=== PATIENT | female | born 1985 | race Caucasian/White ===

== ENCOUNTER 2018-03-15 13:40 | Inpatient (IN) | payer SELFPAY ==
[~2018-03-15] VITALS: Ht 167.6 cm; Wt 73.0 kg
[2018-03-15] MEDS ORDERED: HYDROcodone/APAP 5/325MG 1 TAB TABLET PO PRN (15:45)
--- NOTE | 2018-03-15 15:50 | NUR ---
Pt here from [facility] via POV,no IV in place. Pt. screaming and squirming in bed, refusing IV in R are initially. Unable to find vein in L arm. Attempt x 1 made to R ac. Pt tensing up and and moving, unable to advance IV. Pt now refusing to have IV started. Pt. states "take it out, get somebody else". Dr. Berry at bedside, notfied of pt's refusal for IV at this time. Spoke with Faviola, butter production supervisor to attempt IV.
[2018-03-15] MEDS: ONDANSETRON PF 4 MG/2 ML VIAL. IV PRN (16:17)
[2018-03-15] MEDS ORDERED: PROCHLORPERAZINE 10 MG/2 ML VIAL. IV PRN (16:30)
[2018-03-15] MEDS ORDERED: ONDANSETRON PF 4 MG/2 ML VIAL. IV PRN (16:30)
[2018-03-15] MEDS ORDERED: MAGNESIUM HYDROXIDE 2,400 MG/30 ML ORAL.SUSP. PO PRN (16:30)
[2018-03-15] MEDS: IV 1/2 NORMAL SALINE 1,000 ML IV SCH (16:50)
[2018-03-15] MEDS: MORPHINE SULFATE 4 MG/ML VIAL. IV PRN ×3 (16:51→23:12)
--- NOTE | 2018-03-15 16:53 | PDOC1 ---
History and Physical Date of Admission Date of Admission DATE: 03/15/18 TIME: 16:38 Identification/Chief Complaint Chief Complaint back pain Problems: (1) UTI (urinary tract infection) Source Source: Patient History of Present Illness History of Present Illness 33 year old female with prior UTI who presents with intractable left flank pain since early this AM. patient writhing in pain and unable to answer questions. patient's significant other in room who provided most of the brief history. patient came from outside ER and did not ride by ambulance. she came in private vehicle so no IV access available upon arrival. per ER doctor patient given 2 grams of Rocephin, not septic with stable VSS. US noted to have 4 mm stone. further history difficult to obtain at patient in pain and not answer my questions. patient actively vomiting in room. Past Medical History Past Medical History hx of UTIs in past. no reported hx of nephrolithiasis. Past Surgical History Past Surgical History denies Family History Family History difficult to obtain as patient in pain Social History Smoke: <1 pack per day ALCOHOL: none Drugs: None Current Medications Current Medications Current Medications Acetaminophen/ Hydrocodone Bitart (Lortab 5/325) 1 tab PRN Q4HRS PRN PO PAIN; Start 03/15/18 at 15:45 Ondansetron HCl (Zofran) 4 mg PRN Q6HRS PRN IV NAUSEA/VOMITING Last administered on 03/15/18at 16:17; Start 03/15/18 at 15:45 Sodium Chloride 1,000 ml @ 100 mls/hr Q10H IV ; Start 03/15/18 at 17:00 Ondansetron HCl (Zofran) 4 mg PRN Q6HRS PRN IV NAUSEA/VOMITING; Start 03/15/18 at 16:30; Status UNV Prochlorperazine Edisylate (Compazine) 10 mg PRN Q6HRS PRN IV NAUSEA/VOMITING 2ND CHOICE; Start 03/15/18 at 16:30 Morphine Sulfate (Morphine Sulfate) 1 mg PRN Q1HR PRN IV PAIN; Start 03/15/18 at 16:30 Docusate Sodium (Colace) 100 mg BID PO ; Start 03/15/18 at 21:00 Magnesium Hydroxide (Milk Of Magnesia) 2,400 mg PRN Q12HR PRN PO CONSTIPATION; Start 03/15/18 at 16:30 Heparin Sodium (Porcine) (Heparin Sodium) 5,000 unit Q8HRS SQ ; Start 03/15/18 at 22:00 Ceftriaxone Sodium (Rocephin) 1 gm Q24H IVP ; Start 03/15/18 at 17:00 Allergies Allergies: Coded Allergies: No Known Drug Allergies (Unverified , 03/15/18) ROS Review of System CONSTITUTIONAL: No fever or chills EYES: No recent changes SKIN: No rash or itching CARDIOVASCULAR: No chest pain, syncope, palpitations, or edema RESPIRATORY: No SOB or cough GASTROINTESTINAL: No nausea, vomiting or abdominal pain NEUROLOGICAL: No headaches or weakness ENDOCRINE: No cold or heat intolerance GENITOURINARY: No urgency or frequency of urination MUSCULOSKELETAL: No back pain or joint pain LYMPHATICS: No enlarged lymph nodes PSYCHIATRIC: No anxiety or depression Physical Exam Physical Exam GENERAL: No apparent distress. Alert and oriented. HEENT: Head normocephalic, atraumatic. NECK: Supple LUNGS: Clear to auscultation. HEART: RRR, S1, S2 present, pulses intact ABDOMEN: Soft, positive bowel sounds. EXTREMITIES: No cyanosis or edema. NEUROLOGIC: Normal speech, normal tone PSYCHIATRIC: Normal affect, normal mood. SKIN: No ulceration. VTE Prophylaxis Ordered VTE Prophylaxis Devices: Yes VTE Pharmacological Prophylaxi: Yes Assessment/Plan Assessment/Plan ASSESSMENT: Acute Cystitis without Hematuria secondary to Nephrolithiasis Intractable Nausea and Vomiting Tobacco Abuse PLAN: admit to medical floor bed obtain stat IV access IV compazine for nausea and IV morphine for pain NPO status for now check CBC and BMP now check urine culture start IV Rocephin Urology consulted, defer any further imaging for now. await recommendations dvt ppx: heparin full code LOS greater than 2 days given UTI/kidney stones requiring IV abx and fluids Problem Qualifiers (1) UTI (urinary tract infection): Urinary tract infection type: acute cystitis Hematuria presence: without hematuria Qualified Codes: N30.00 - Acute cystitis without hematuria CHHAYA GUIDRY MD Mar 15, 2018 16:53
[2018-03-15] MEDS: cefTRIAXone IV Push 1 GM VIAL. IVP SCH (17:00)
[2018-03-15 17:21] VITALS: BP 119/69
[2018-03-15 17:27] LABS: BASO % 0 % (0-3); EOS # 0.2 x10^3/uL (0.0-0.7); EOS % 1 % (0-3); HEMATOCRIT 36.7 % (36.0-47.0); HEMOGLOBIN 11.8 g/dL (12.0-15.5); LYMPH % 6 % (24-48); MEAN CORPUSCULAR HEMOGLOBIN 29 pg (25-35); MEAN CORPUSCULAR HGB CONC 32 g/dL (31-37); MEAN CORPUSCULAR VOLUME 90 fL (79-100); MONO # 2.1 x10^3/uL (0.0-1.1); MONO % 12 % (0-9); NEUT # 13.9 x10^3uL (1.8-7.7); NEUT % 81 % (31-73); PLATELET COUNT 275 x10^3/uL (140-400); RED CELL DISTRIBUTION WIDTH 13.5 % (11.5-14.5); WHITE BLOOD COUNT 17.3 x10^3/uL (4.0-11.0)
[2018-03-15 17:41] LABS: CALCIUM 8.4 mg/dL (8.5-10.1); CREATININE 0.8 mg/dL (0.6-1.0); GFR 82.6; POTASSIUM 3.4 mmol/L (3.5-5.1)
[2018-03-15 17:44] LABS: ALBUMIN 3.2 g/dL (3.4-5.0); DIRECT BILIRUBIN 0.1 mg/dL (0.0-0.2); TOTAL BILIRUBIN 0.2 mg/dL (0.2-1.0); TOTAL PROTEIN 5.9 g/dL (6.4-8.2)
[2018-03-15 18:07] LABS: % EOS 1 % (0-5); % LYMPHS 5 % (24-48); % MONOS 7 % (0-10); % SEGS 87 % (35-66)
[2018-03-15 18:08] LABS: PLT ESTIMATE ADEQUATE (ADEQUATE)
[2018-03-15 19:45] VITALS: BP 98/52
[2018-03-15] MEDS: DOCUSATE SODIUM 100 MG CAPSULE. PO SCH (20:46)
[2018-03-15] MEDS: HEPARIN for SUB-Q USE 5,000 UNIT/ML VIAL. SQ SCH (22:00)
--- NOTE | 2018-03-15 22:48 | NUR ---
Pt. moaned and cried that heparin was being given on her arm. Significant other was at bedside trying to comfort pt. while patient started to thrash around. This nurse dropped heparin needle and poked pt. accidentally. Pt. started swearing. This nurse attempted to tell pt. she needs to stop moving around or there was a chance of this nurse getting pricked by the needle. Pt. then stated "step back and get the fucking needle away from me." Pt. was educated on reason for heparin and its preventative measures.
[2018-03-16] MEDS: ONDANSETRON PF 4 MG/2 ML VIAL. IV PRN (02:36)
[2018-03-16] MEDS: IV 1/2 NORMAL SALINE 1,000 ML IV SCH ×2 (02:37→11:47)
[2018-03-16] MEDS: MORPHINE SULFATE 4 MG/ML VIAL. IV PRN ×2 (02:37→06:45)
[2018-03-16 03:14] VITALS: BP 99/60
[2018-03-16 06:02] LABS: ALBUMIN 2.7 g/dL (3.4-5.0); ALBUMIN/GLOBULIN RATIO 0.9 (1.0-1.7); CALCIUM 8.5 mg/dL (8.5-10.1); CREATININE 0.8 mg/dL (0.6-1.0); GFR 82.6; POTASSIUM 3.5 mmol/L (3.5-5.1); TOTAL BILIRUBIN 0.4 mg/dL (0.2-1.0); TOTAL PROTEIN 5.7 g/dL (6.4-8.2)
[2018-03-16] MEDS: HEPARIN for SUB-Q USE 5,000 UNIT/ML VIAL. SQ SCH ×2 (06:45→12:51)
[2018-03-16 07:00] VITALS: BP 96/61
[2018-03-16] MEDS: DOCUSATE SODIUM 100 MG CAPSULE. PO SCH ×2 (08:13→09:24)
--- NOTE | 2018-03-16 08:51 | PDOC2 ---
WYATT CALVO ADON 03/16/18 0851: UROLOGY CONSULT Date of Consult Date of Consult DATE: 03/16/18 TIME: 08:43 Reason for Consult Reason for Consult: Kidney stone Identification/Chief Complaint Chief Complaint Kidney stone Source Source: Caregiver, Chart review, Patient History of Present Illness Reason for Visit: Patient is a 33 year old female who presented to the ER with intractable right sided flank pain yesterday. A CT scan was done and it was discovered that she had a kidney stone on the left side. Patient reports that this is her first one. She is otherwise a healthy person with no chronic health conditions. She denies dysuria or hematuria; however her urine does look "dark orange." She does not remember seeing any dirt or sand coming out in her urine. Today her pain is much better controlled, about 5/10 with medication and she is requesting something to eat. Past Medical History Cardiovascular: No pertinent hx Pulmonary: No pertinent hx GI: No pertinent hx Heme/Onc: No pertinent hx Hepatobiliary: No pertinent hx Psych: No pertinent hx Musculoskeletal: Other (flank pain left side) Grav: 2 Para: 2 Social History <1 pack per day ALCOHOL: none Drugs: None Current Problem List Problems: (1) Kidney stone (2) UTI (urinary tract infection) Current Medications Current Medications Current Medications Acetaminophen/ Hydrocodone Bitart (Lortab 5/325) 1 tab PRN Q4HRS PRN PO PAIN; Start 03/15/18 at 15:45 Ceftriaxone Sodium (Rocephin) 1 gm Q24H IVP Last administered on 03/15/18at 17:00 ; Start 03/15/18 at 17:00 Docusate Sodium (Colace) 100 mg BID PO Last administered on 03/15/18at 20:46; Start 03/15/18 at 21:00 Heparin Sodium (Porcine) (Heparin Sodium) 5,000 unit Q8HRS SQ ; Start 03/15/18 at 22:00 Magnesium Hydroxide (Milk Of Magnesia) 2,400 mg PRN Q12HR PRN PO CONSTIPATION; Start 03/15/18 at 16:30 Morphine Sulfate (Morphine Sulfate) 1 mg PRN Q1HR PRN IV PAIN Last administered on 03/16/18at 06:45; Start 03/15/18 at 16:30 Ondansetron HCl (Zofran) 4 mg PRN Q6HRS PRN IV NAUSEA/VOMITING Last administered on 03/16/18at 02:36; Start 03/15/18 at 15:45 Ondansetron HCl (Zofran) 4 mg PRN Q6HRS PRN IV NAUSEA/VOMITING; Start 03/15/18 at 16:30; Status UNV Prochlorperazine Edisylate (Compazine) 10 mg PRN Q6HRS PRN IV NAUSEA/VOMITING 2ND CHOICE; Start 03/15/18 at 16:30 Sodium Chloride 1,000 ml @ 100 mls/hr Q10H IV Last administered on 03/16/18at 02 :37; Start 03/15/18 at 17:00 Tamsulosin HCl (Flomax) 0.4 mg DAILY PO ; Start 03/16/18 at 09:00; Status UNV Allergies Allergies: Coded Allergies: No Known Drug Allergies (Unverified , 03/15/18) ROS Review Of Systems: CONSTITUTIONAL: No fever or chills EYES: No recent changes SKIN: No rash or itching CARDIOVASCULAR: No chest pain, syncope, palpitations, or edema RESPIRATORY: No SOB or cough GASTROINTESTINAL: + left flank pain/left lower/upper quadrant pain NEUROLOGICAL: No headaches or weakness ENDOCRINE: No cold or heat intolerance GENITOURINARY: No urgency or frequency of urination; no hematuria MUSCULOSKELETAL: No back pain or joint pain LYMPHATICS: No enlarged lymph nodes PSYCHIATRIC: No anxiety or depression Physical Exam Physical Exam: General: Pleasant, no acute distress, well groomed Eyes: conjunctiva anicteric, eyes full range of motion ENT: moist oral mucosa, normal dentition Neck: Trachea midline, no masses Respiratory: unlabored breathing, not using accessory muscles Abdomen: + tender left flank, left upper and lower quadrants of abd; non tender all other areas. Skin: no rashes or skin lesions on visualized skin Psych: normal mood, affect. Alert and oriented x 3. Vitals VITALS Vital Signs Date Time Temp Pulse Resp B/P (MAP) Pulse Ox O2 Delivery O2 Flow Rate FiO2 03/16/18 08:17 Room Air 03/16/18 07:23 18 03/16/18 07:00 98.1 84 96/61 (73) 97 98.1 Labs Labs Laboratory Tests Test 03/15/18 17:20 03/16/18 03:45 White Blood Count 17.3 x10^3/uL (4.0-11.0) Red Blood Count 4.10 x10^6/uL (3.50-5.40) Hemoglobin 11.8 g/dL (12.0-15.5) Hematocrit 36.7 % (36.0-47.0) Mean Corpuscular Volume 90 fL (79-100) Mean Corpuscular Hemoglobin 29 pg (25-35) Mean Corpuscular Hemoglobin Concent 32 g/dL (31-37) Red Cell Distribution Width 13.5 % (11.5-14.5) Platelet Count 275 x10^3/uL (140-400) Neutrophils (%) (Auto) 81 % (31-73) Lymphocytes (%) (Auto) 6 % (24-48) Monocytes (%) (Auto) 12 % (0-9) Eosinophils (%) (Auto) 1 % (0-3) Basophils (%) (Auto) 0 % (0-3) Neutrophils # (Auto) 13.9 x10^3uL (1.8-7.7) Lymphocytes # (Auto) 1.0 x10^3/uL (1.0-4.8) Monocytes # (Auto) 2.1 x10^3/uL (0.0-1.1) Eosinophils # (Auto) 0.2 x10^3/uL (0.0-0.7) Basophils # (Auto) 0.0 x10^3/uL (0.0-0.2) Segmented Neutrophils % 87 % (35-66) Lymphocytes % 5 % (24-48) Monocytes % 7 % (0-10) Eosinophils % 1 % (0-5) Platelet Estimate Adequate (ADEQUATE) Sodium Level 140 mmol/L (136-145) 139 mmol/L (136-145) Potassium Level 3.4 mmol/L (3.5-5.1) 3.5 mmol/L (3.5-5.1) Chloride Level 104 mmol/L (98-107) 106 mmol/L (98-107) Carbon Dioxide Level 24 mmol/L (21-32) 25 mmol/L (21-32) Anion Gap 12 (6-14) 8 (6-14) Blood Urea Nitrogen 16 mg/dL (7-20) 12 mg/dL (7-20) Creatinine 0.8 mg/dL (0.6-1.0) 0.8 mg/dL (0.6-1.0) Estimated GFR (Cockcroft-Gault) 82.6 82.6 Glucose Level 131 mg/dL (70-99) 94 mg/dL (70-99) Calcium Level 8.4 mg/dL (8.5-10.1) 8.5 mg/dL (8.5-10.1) Total Bilirubin 0.2 mg/dL (0.2-1.0) 0.4 mg/dL (0.2-1.0) Direct Bilirubin 0.1 mg/dL (0.0-0.2) Aspartate Amino Transf (AST/SGOT) 17 U/L (15-37) 15 U/L (15-37) Alanine Aminotransferase (ALT/SGPT) 19 U/L (14-59) 18 U/L (14-59) Alkaline Phosphatase 83 U/L (46-116) 82 U/L (46-116) Total Protein 5.9 g/dL (6.4-8.2) 5.7 g/dL (6.4-8.2) Albumin 3.2 g/dL (3.4-5.0) 2.7 g/dL (3.4-5.0) BUN/Creatinine Ratio 15 (6-20) Albumin/Globulin Ratio 0.9 (1.0-1.7) Laboratory Tests Test 03/15/18 17:20 03/16/18 03:45 White Blood Count 17.3 x10^3/uL (4.0-11.0) Red Blood Count 4.10 x10^6/uL (3.50-5.40) Hemoglobin 11.8 g/dL (12.0-15.5) Hematocrit 36.7 % (36.0-47.0) Mean Corpuscular Volume 90 fL (79-100) Mean Corpuscular Hemoglobin 29 pg (25-35) Mean Corpuscular Hemoglobin Concent 32 g/dL (31-37) Red Cell Distribution Width 13.5 % (11.5-14.5) Platelet Count 275 x10^3/uL (140-400) Neutrophils (%) (Auto) 81 % (31-73) Lymphocytes (%) (Auto) 6 % (24-48) Monocytes (%) (Auto) 12 % (0-9) Eosinophils (%) (Auto) 1 % (0-3) Basophils (%) (Auto) 0 % (0-3) Neutrophils # (Auto) 13.9 x10^3uL (1.8-7.7) Lymphocytes # (Auto) 1.0 x10^3/uL (1.0-4.8) Monocytes # (Auto) 2.1 x10^3/uL (0.0-1.1) Eosinophils # (Auto) 0.2 x10^3/uL (0.0-0.7) Basophils # (Auto) 0.0 x10^3/uL (0.0-0.2) Segmented Neutrophils % 87 % (35-66) Lymphocytes % 5 % (24-48) Monocytes % 7 % (0-10) Eosinophils % 1 % (0-5) Platelet Estimate Adequate (ADEQUATE) Sodium Level 140 mmol/L (136-145) 139 mmol/L (136-145) Potassium Level 3.4 mmol/L (3.5-5.1) 3.5 mmol/L (3.5-5.1) Chloride Level 104 mmol/L (98-107) 106 mmol/L (98-107) Carbon Dioxide Level 24 mmol/L (21-32) 25 mmol/L (21-32) Anion Gap 12 (6-14) 8 (6-14) Blood Urea Nitrogen 16 mg/dL (7-20) 12 mg/dL (7-20) Creatinine 0.8 mg/dL (0.6-1.0) 0.8 mg/dL (0.6-1.0) Estimated GFR (Cockcroft-Gault) 82.6 82.6 Glucose Level 131 mg/dL (70-99) 94 mg/dL (70-99) Calcium Level 8.4 mg/dL (8.5-10.1) 8.5 mg/dL (8.5-10.1) Total Bilirubin 0.2 mg/dL (0.2-1.0) 0.4 mg/dL (0.2-1.0) Direct Bilirubin 0.1 mg/dL (0.0-0.2) Aspartate Amino Transf (AST/SGOT) 17 U/L (15-37) 15 U/L (15-37) Alanine Aminotransferase (ALT/SGPT) 19 U/L (14-59) 18 U/L (14-59) Alkaline Phosphatase 83 U/L (46-116) 82 U/L (46-116) Total Protein 5.9 g/dL (6.4-8.2) 5.7 g/dL (6.4-8.2) Albumin 3.2 g/dL (3.4-5.0) 2.7 g/dL (3.4-5.0) BUN/Creatinine Ratio 15 (6-20) Albumin/Globulin Ratio 0.9 (1.0-1.7) Assessment/Plan Assessment/Plan Infected stone: We will get a KUB today to check stone position CBC ordered. Continue antibiotics, continuous IVF. Nursing to strain urine. UA today Continue pain control, nausea control Pt may eat, regular diet. 1330 UPDATE: Stone not visible on KUB. Pt does have some stool visible on the film. Discussed options for stone management, to include surgery/ URS vs watchful waiting. Pt has had minimal pain all day and does not want surgery. Asked about going home later. Discussed with patient importance of good bowel program, nurse will give MOM. Oral Toradol for pain prescribed,trial of orals. If ok with medical team, could go home after 5 pm dose of antibiotics with ten days of oral antibiotics and RX for Flomax. Follow up outpatient with Dr. Hart in 1-2 weeks. DEANDRE HART MD 03/16/18 1637: UROLOGY CONSULT Assessment/Plan Assessment/Plan Left renal colic and bacteruria. NO EVIDENCE OF INFECTED STONE. AF VSSN. Agree with ucx and empiric abx treatment. 4mm left mid-prox stone, mild hydro. Agree w hydration, flomax, straining. fu 2 weeks w kub, bring stone for analysis if collected. WYATT CALVO APRN Mar 16, 2018 08:51 DEANDRE HART MD Mar 16, 2018 16:37
[2018-03-16] MEDS ORDERED: TAMSULOSIN 0.4 MG CAP.ER.24H. PO SCH ×2 (09:00→21:00)
--- NOTE | 2018-03-16 09:08 | RAD ---
Indication: Left kidney stone. TECHNIQUE: 2 AP views of the abdomen and pelvis COMPARISON: None FINDINGS: Heart is normal in size. Visualized lung bases are clear. No pneumoperitoneum. No abnormally dilated bowel loops. No apparent calcific density seen projecting over the expected location of the kidneys. Visualized bones are within normal limits. IMPRESSION: No apparent calcific densities projecting over the kidneys to suggest renal stone although overlying stool makes it difficult to evaluate for subtle stones. Consider CT abdomen pelvis without IV contrast for further evaluation. Electronically signed by: Joseph Huerta DO (03/16/2018 9:04 AM) [id number]
[2018-03-16 09:27] LABS: BASO % 0 % (0-3); EOS # 0.2 x10^3/uL (0.0-0.7); EOS % 2 % (0-3); HEMATOCRIT 36.8 % (36.0-47.0); HEMOGLOBIN 11.7 g/dL (12.0-15.5); LYMPH % 15 % (24-48); MEAN CORPUSCULAR HEMOGLOBIN 29 pg (25-35); MEAN CORPUSCULAR HGB CONC 32 g/dL (31-37); MEAN CORPUSCULAR VOLUME 91 fL (79-100); MONO # 1.5 x10^3/uL (0.0-1.1); MONO % 11 % (0-9); NEUT # 9.6 x10^3uL (1.8-7.7); NEUT % 72 % (31-73); PLATELET COUNT 282 x10^3/uL (140-400); RED BLOOD COUNT 4.03 x10^6/uL (3.50-5.40); RED CELL DISTRIBUTION WIDTH 13.6 % (11.5-14.5); WHITE BLOOD COUNT 13.3 x10^3/uL (4.0-11.0)
[2018-03-16 11:00] VITALS: BP 91/55
--- NOTE | 2018-03-16 11:04 | NUR ---
SW following for discharge planning. Discussed with RN, pt is from home. RN advised no SW needs at this time. SW will continue to follow.
[2018-03-16] MEDS ORDERED: KETOROLAC TROMETHAMINE 10 MG TABLET PO PRN (13:30)
[2018-03-16 15:00] VITALS: BP 100/50
[2018-03-16] MEDS ORDERED: KETO10TA PO (15:00)
[2018-03-16] MEDS ORDERED: SULF-143 PO (15:00)
--- NOTE | 2018-03-16 15:16 | PDOC3 ---
Discharge Summary Visit Information Date of Admission: Mar 15, 2018 Date of Discharge: Mar 16, 2018 Brief Hospital Course Allergies Allergies Coded Allergies Type Severity Reaction Last Updated Verified No Known Drug Allergies 03/15/18 No Vital Signs Vital Signs Date Time Temp Pulse Resp B/P (MAP) Pulse Ox O2 Delivery O2 Flow Rate FiO2 03/16/18 11:00 98.1 92 18 91/55 (67) 95 Room Air 98.1 Lab Results Laboratory Tests Test 03/15/18 17:20 03/16/18 03:45 White Blood Count 17.3 x10^3/uL (4.0-11.0) 13.3 x10^3/uL (4.0-11.0) Red Blood Count 4.10 x10^6/uL (3.50-5.40) 4.03 x10^6/uL (3.50-5.40) Hemoglobin 11.8 g/dL (12.0-15.5) 11.7 g/dL (12.0-15.5) Hematocrit 36.7 % (36.0-47.0) 36.8 % (36.0-47.0) Mean Corpuscular Volume 90 fL (79-100) 91 fL (79-100) Mean Corpuscular Hemoglobin 29 pg (25-35) 29 pg (25-35) Mean Corpuscular Hemoglobin Concent 32 g/dL (31-37) 32 g/dL (31-37) Red Cell Distribution Width 13.5 % (11.5-14.5) 13.6 % (11.5-14.5) Platelet Count 275 x10^3/uL (140-400) 282 x10^3/uL (140-400) Neutrophils (%) (Auto) 81 % (31-73) 72 % (31-73) Lymphocytes (%) (Auto) 6 % (24-48) 15 % (24-48) Monocytes (%) (Auto) 12 % (0-9) 11 % (0-9) Eosinophils (%) (Auto) 1 % (0-3) 2 % (0-3) Basophils (%) (Auto) 0 % (0-3) 0 % (0-3) Neutrophils # (Auto) 13.9 x10^3uL (1.8-7.7) 9.6 x10^3uL (1.8-7.7) Lymphocytes # (Auto) 1.0 x10^3/uL (1.0-4.8) 2.0 x10^3/uL (1.0-4.8) Monocytes # (Auto) 2.1 x10^3/uL (0.0-1.1) 1.5 x10^3/uL (0.0-1.1) Eosinophils # (Auto) 0.2 x10^3/uL (0.0-0.7) 0.2 x10^3/uL (0.0-0.7) Basophils # (Auto) 0.0 x10^3/uL (0.0-0.2) 0.0 x10^3/uL (0.0-0.2) Segmented Neutrophils % 87 % (35-66) Lymphocytes % 5 % (24-48) Monocytes % 7 % (0-10) Eosinophils % 1 % (0-5) Platelet Estimate Adequate (ADEQUATE) Sodium Level 140 mmol/L (136-145) 139 mmol/L (136-145) Potassium Level 3.4 mmol/L (3.5-5.1) 3.5 mmol/L (3.5-5.1) Chloride Level 104 mmol/L (98-107) 106 mmol/L (98-107) Carbon Dioxide Level 24 mmol/L (21-32) 25 mmol/L (21-32) Anion Gap 12 (6-14) 8 (6-14) Blood Urea Nitrogen 16 mg/dL (7-20) 12 mg/dL (7-20) Creatinine 0.8 mg/dL (0.6-1.0) 0.8 mg/dL (0.6-1.0) Estimated GFR (Cockcroft-Gault) 82.6 82.6 Glucose Level 131 mg/dL (70-99) 94 mg/dL (70-99) Calcium Level 8.4 mg/dL (8.5-10.1) 8.5 mg/dL (8.5-10.1) Total Bilirubin 0.2 mg/dL (0.2-1.0) 0.4 mg/dL (0.2-1.0) Direct Bilirubin 0.1 mg/dL (0.0-0.2) Aspartate Amino Transf (AST/SGOT) 17 U/L (15-37) 15 U/L (15-37) Alanine Aminotransferase (ALT/SGPT) 19 U/L (14-59) 18 U/L (14-59) Alkaline Phosphatase 83 U/L (46-116) 82 U/L (46-116) Total Protein 5.9 g/dL (6.4-8.2) 5.7 g/dL (6.4-8.2) Albumin 3.2 g/dL (3.4-5.0) 2.7 g/dL (3.4-5.0) BUN/Creatinine Ratio 15 (6-20) Albumin/Globulin Ratio 0.9 (1.0-1.7) Laboratory Tests Test 03/15/18 17:20 03/16/18 03:45 White Blood Count 17.3 x10^3/uL (4.0-11.0) 13.3 x10^3/uL (4.0-11.0) Red Blood Count 4.10 x10^6/uL (3.50-5.40) 4.03 x10^6/uL (3.50-5.40) Hemoglobin 11.8 g/dL (12.0-15.5) 11.7 g/dL (12.0-15.5) Hematocrit 36.7 % (36.0-47.0) 36.8 % (36.0-47.0) Mean Corpuscular Volume 90 fL (79-100) 91 fL (79-100) Mean Corpuscular Hemoglobin 29 pg (25-35) 29 pg (25-35) Mean Corpuscular Hemoglobin Concent 32 g/dL (31-37) 32 g/dL (31-37) Red Cell Distribution Width 13.5 % (11.5-14.5) 13.6 % (11.5-14.5) Platelet Count 275 x10^3/uL (140-400) 282 x10^3/uL (140-400) Neutrophils (%) (Auto) 81 % (31-73) 72 % (31-73) Lymphocytes (%) (Auto) 6 % (24-48) 15 % (24-48) Monocytes (%) (Auto) 12 % (0-9) 11 % (0-9) Eosinophils (%) (Auto) 1 % (0-3) 2 % (0-3) Basophils (%) (Auto) 0 % (0-3) 0 % (0-3) Neutrophils # (Auto) 13.9 x10^3uL (1.8-7.7) 9.6 x10^3uL (1.8-7.7) Lymphocytes # (Auto) 1.0 x10^3/uL (1.0-4.8) 2.0 x10^3/uL (1.0-4.8) Monocytes # (Auto) 2.1 x10^3/uL (0.0-1.1) 1.5 x10^3/uL (0.0-1.1) Eosinophils # (Auto) 0.2 x10^3/uL (0.0-0.7) 0.2 x10^3/uL (0.0-0.7) Basophils # (Auto) 0.0 x10^3/uL (0.0-0.2) 0.0 x10^3/uL (0.0-0.2) Segmented Neutrophils % 87 % (35-66) Lymphocytes % 5 % (24-48) Monocytes % 7 % (0-10) Eosinophils % 1 % (0-5) Platelet Estimate Adequate (ADEQUATE) Sodium Level 140 mmol/L (136-145) 139 mmol/L (136-145) Potassium Level 3.4 mmol/L (3.5-5.1) 3.5 mmol/L (3.5-5.1) Chloride Level 104 mmol/L (98-107) 106 mmol/L (98-107) Carbon Dioxide Level 24 mmol/L (21-32) 25 mmol/L (21-32) Anion Gap 12 (6-14) 8 (6-14) Blood Urea Nitrogen 16 mg/dL (7-20) 12 mg/dL (7-20) Creatinine 0.8 mg/dL (0.6-1.0) 0.8 mg/dL (0.6-1.0) Estimated GFR (Cockcroft-Gault) 82.6 82.6 Glucose Level 131 mg/dL (70-99) 94 mg/dL (70-99) Calcium Level 8.4 mg/dL (8.5-10.1) 8.5 mg/dL (8.5-10.1) Total Bilirubin 0.2 mg/dL (0.2-1.0) 0.4 mg/dL (0.2-1.0) Direct Bilirubin 0.1 mg/dL (0.0-0.2) Aspartate Amino Transf (AST/SGOT) 17 U/L (15-37) 15 U/L (15-37) Alanine Aminotransferase (ALT/SGPT) 19 U/L (14-59) 18 U/L (14-59) Alkaline Phosphatase 83 U/L (46-116) 82 U/L (46-116) Total Protein 5.9 g/dL (6.4-8.2) 5.7 g/dL (6.4-8.2) Albumin 3.2 g/dL (3.4-5.0) 2.7 g/dL (3.4-5.0) BUN/Creatinine Ratio 15 (6-20) Albumin/Globulin Ratio 0.9 (1.0-1.7) Brief Hospital Course Ms. Lowe is a 33 year old female with prior UTI who presents with intractable left flank pain since early this AM. patient writhing in pain and unable to answer questions. patient's significant other in room who provided most of the brief history. patient came from outside ER and did not ride by ambulance. she came in private vehicle so no IV access available upon arrival. per ER doctor patient given 2 grams of Rocephin, not septic with stable VSS. US noted to have 4 mm stone. hospitalist called for admission. patient treated with rocephin for infected stone. found to have leukocytosis which improved at discharge. pain controlled with morphine. KUB checked following day. stone not visible on KOB. urology consulted. Discussed options for stone management, to include surgery/ URS vs watchful waiting. Pt has had minimal pain all day and does not want surgery. will give treatment with bactrim for 10 days, toradol for pain, and flomax. patient tolerated diet at discharge. will follow up with Dr. Hart at discharge in 1-2 weeks. Discharge Information Condition at Discharge: Stable Follow Up: Weeks (Dr. Hart in 1-2 weeks.) Scheduled Info (No Known Medications Prior To Admisstion) Each, 1 EACH 1X for None, ( Reported) Entered as Reported by: HIEN SMITH on 03/15/181806 Last Action: New Order on 03/15/181806 by HIEN SMITH Sulfamethoxazole/Trimethoprim (Sulfamethoxazole-Tmp Ds Tablet) 1 Each Tablet, 1 TAB PO BID for UTI for 10 Days, #20 Prescribed by: CHHAYA GUIDRY MD on 03/16/18 1500 Scheduled PRN Ketorolac Tromethamine (Ketorolac Tromethamine) 10 Mg Tablet, 10 MG PO TID PRN PRN for MILD PAIN for 7 Days, #10 Prescribed by: HCHAYA GUIDRY MD on 03/16/181499 CHHAYA GUIDRY MD Mar 16, 2018 15:16
[2018-03-16] MEDS ORDERED: TAMS0.4C97 PO (15:19)
[2018-03-16] MEDS ORDERED: SMZ/TMP 800/160MG TABLET. PO SCH (15:30)
[2018-03-16] MEDS: cefTRIAXone IV Push 1 GM VIAL. IVP SCH (16:01)
--- NOTE | 2018-03-16 17:00 | NUR ---
pt is discharged home with self care at 1615 via ambulation via [facility]. pt is in stable condition. pt has all belongings with her. pt received discharge instructions and prescriptions and stated she had no further questions for me.
[2018-03-16] MEDS ORDERED: LACTOBACILLUS RHAMNOSUS GG 1 CAPSULE. PO SCH (21:00)
== END 2018-03-16 16:15 | disposition home or self-care (01) | DRG 690 ==
LOC: 4 NORTH 15:26
PROVIDERS: ADMIT Internal Medicine; ATTEND Internal Medicine
DX: N30.00 Acute cystitis without hematuria (principal); N20.0 Calculus of kidney; F17.210 Nicotine dependence, cigarettes, uncomplicated; R82.71 Bacteriuria; Z87.440 Personal history of urinary (tract) infections
CPT/HCPCS: 36415; 74018; 80048; 80053; 80076; 85007; 85025; 87086; J0696; J2270; J2405; G0378

== ENCOUNTER 2020-05-22 12:30 | Emergency (ER) | payer SELFPAY ==
[~2020-05-22] VITALS: Ht 167.6 cm; Wt 63.0 kg
[~2020-05-22 12:30] MED LIST: KETO10TA PO; SULF-143 PO; TAMS0.4C97 PO
[2020-05-22 12:31] VITALS: BP 122/72
== END 2020-05-22 12:48 | disposition left against medical advice (07) ==
LOC: ER 12:30
DX: R10.11 Right upper quadrant pain (principal); R11.2 Nausea with vomiting, unspecified; Z53.21 Procedure and treatment not carried out due to patient leaving prior to being seen by health care provider

== ENCOUNTER 2020-09-18 20:14 | Emergency (ER) | payer SELFPAY ==
[2020-08-17 09:58] VITALS: BP 96/57
[~2020-09-18 20:14] MED LIST changes: +DOCU-109 PO; +HYDR-2761 PO
== END 2020-09-19 02:24 | disposition left against medical advice (07) ==
LOC: ER 20:14
DX: R10.9 Unspecified abdominal pain (principal); Z53.21 Procedure and treatment not carried out due to patient leaving prior to being seen by health care provider